=== PATIENT | female | born 2000 | race Caucasian/White ===

== ENCOUNTER → 2019-11-15 | Outpatient (CLI) | payer OTHER, SELFPAY | END | disposition home or self-care (01) | PROVIDERS: Referring Provider Family Medicine; Visit Provider Family Medicine | DX: Z03.818 Encounter for observation for suspected exposure to other biological agents ruled out (principal) | CPT/HCPCS: 87635; U0003 ==

== ENCOUNTER → 2019-11-28 | Outpatient (CLI) | payer OTHER, SELFPAY | END | disposition home or self-care (01) | LOC: LABSPEC 12:56 | PROVIDERS: Referring Provider Family Medicine; Visit Provider Family Medicine | DX: Z11.59 Encounter for screening for other viral diseases (principal) | CPT/HCPCS: 87635; U0003 ==

== ENCOUNTER → 2019-12-12 | Outpatient (CLI) | payer OTHER, SELFPAY | END | disposition home or self-care (01) | LOC: LABSPEC 12:48 | PROVIDERS: Referring Provider Family Medicine; Visit Provider Family Medicine | DX: Z03.818 Encounter for observation for suspected exposure to other biological agents ruled out (principal) | CPT/HCPCS: 87635; U0003 ==

== ENCOUNTER → 2020-07-07 14:35 | Outpatient (CLI) | payer OTHER, SELFPAY ==
[2020-07-07 18:11] LABS: Basophil# 0.05 X10^3/uL; Basophil% 0.8 % (0-1); Eosinophils% 1.6 % (0-5); Hematocrit 33.8 % (37-47); Hemoglobin 10.4 g/dL (12.0-15.0); Lymphocyte % 41.9 % (19-41); Mean Corp Hgb Conc 30.8 g/dL (32-36); Mean Corpuscular Hgb 24.3 pg (27.0-32.0); Mean Platelet Vol. 9.5 fl (6.2-12.0); Monocyte# 0.59 X10^3/uL; Monocyte% 9.2 % (0-10); NRBC Flagged by Analyzer 0 % (0-5); Neutrophil # 2.98 X10^3/uL (2.7-7.7); Neutrophil % 46.2 % (47-70); Platelet Count 367 K/mm3 (150-450); RBC Distribution Width CV 13.2 % (11.6-14.6); RBC Distribution Width SD 37.7 fl (35.1-43.9); Red Blood Count 4.28 M/mm3 (4.2-5.4); White Blood Count 6.4 K/mm3 (4.4-11.0)
[2020-07-07 18:38] LABS: ALB/GLOB Ratio 1.1 RATIO (0.9-2.4); AST(SGOT) 12 U/L (15-37); Alanine Aminotransfer ALT/SGPT 20 U/L (13-56); Albumin, Serum 3.7 g/dL (3.2-5.0); Alkaline Phosphatase 50 U/L (45-117); Anion Gap 8 (5-15); BUN 13 mg/dL (7-18); BUN/Creat Ratio 17.8 RATIO (10-20); Calcium,Total 8.7 mg/dL (8.5-10.1); Chloride 104 mmol/L (98-107); Creatinine, Serum 0.73 mg/dL (0.55-1.02); EST Glomerular Filtration Rate 107 mL/min (>60); Est Glom Filt Rate - Afr Amer 130 mL/min (>60); Globulin 3.5 g/dL (2.2-4.2); Glucose 85 mg/dL (74-106); Potassium 3.5 mmol/L (3.5-5.1); Protein, Total 7.2 g/dL (6.4-8.2); Sodium Level 138 mmol/L (136-145); T4 Free Direct 0.93 ng/dL (0.76-1.46); Thyroid Stim Hormone (TSH) 1.28 uIU/mL (0.358-3.74)
[2020-07-09 17:23] LABS: Ferritin 4 ng/mL (8-252); Iron 24 ug/dL (50-170); Iron Binding Capacity,Total 431 ug/dL (250-450); PERCENT IRON SATURATION 5.6 % (15.0-55.0)
[2020-07-09 22:09] LABS: Endomysial Antibody IgA Negative (Negative)
[2020-07-10 12:49] LABS: Immunoglobulin A 160 mg/dL (87-352); t-Transglutaminase IgA <2 U/mL (0-3)
== END ==
PROVIDERS: PCP Family Medicine; Referring Provider Family Medicine; Visit Provider Family Medicine
DX: L65.9 Nonscarring hair loss, unspecified (principal)
CPT/HCPCS: 36415; 80053; 82728; 82784; 83516; 83540; 83550; 84439; 84443; 85025; 86255

== ENCOUNTER → 2020-07-10 08:58 | Outpatient (CLI) | payer OTHER, SELFPAY | PROVIDERS: PCP Family Medicine; Referring Provider Family Medicine; Visit Provider Family Medicine | DX: D64.9 Anemia, unspecified (principal) | CPT/HCPCS: 36415; 82746 ==

== ENCOUNTER → 2020-07-28 13:36 | Outpatient (CLI) | payer OTHER, SELFPAY ==
[2020-07-28 15:20] LABS: Absolute Neutrophil Count 3.2 X10^3/uL (2.0-7.7); Basophil# 0.03 X10^3/uL; Basophil% 0.5 % (0-1); Eosinophil# 0.08 X10^3/uL; Eosinophils% 1.4 % (0-5); Hematocrit 34.6 % (37-47); Hemoglobin 10.4 g/dL (12.0-15.0); Lymphocyte % 37.2 % (19-41); Mean Corp Hgb Conc 30.1 g/dL (32-36); Mean Corpuscular Hgb 23.7 pg (27.0-32.0); Mean Corpuscular Volume 78.8 fL (81-99); Mean Platelet Vol. 9.7 fl (6.2-12.0); Monocyte# 0.38 X10^3/uL; Monocyte% 6.4 % (0-10); NRBC Flagged by Analyzer 0 % (0-5); Neutrophil # 3.21 X10^3/uL (2.7-7.7); Neutrophil % 54.3 % (47-70); Platelet Count 400 K/mm3 (150-450); RBC Distribution Width CV 15.2 % (11.6-14.6); RBC Distribution Width SD 42.5 fl (35.1-43.9); Red Blood Count 4.39 M/mm3 (4.2-5.4); White Blood Count 5.9 K/mm3 (4.4-11.0)
[2020-07-28 15:44] LABS: Ferritin 19 ng/mL (8-252); Iron 370 ug/dL (50-170); Iron Binding Capacity,Total 415 ug/dL (250-450)
== END ==
PROVIDERS: PCP Family Medicine; Referring Provider Family Medicine; Visit Provider Family Medicine
DX: D50.9 Iron deficiency anemia, unspecified (principal)
CPT/HCPCS: 36415; 82728; 83540; 83550; 85025

== ENCOUNTER → 2020-09-10 07:24 | Outpatient (CLI) | payer OTHER, SELFPAY ==
[2020-08-20 09:08] VITALS: BMI 23.8
[2020-09-10 08:55] LABS: Hemoglobin 10.8 g/dL (12.0-15.0); Mean Corp Hgb Conc 30.9 g/dL (32-36); Mean Corpuscular Hgb 23.5 pg (27.0-32.0); Mean Corpuscular Volume 76.1 fL (81-99); Mean Platelet Vol. 9.4 fl (6.2-12.0); Platelet Count 367 K/mm3 (150-450); RBC Distribution Width CV 16.4 % (11.6-14.6); RBC Distribution Width SD 44.8 fl (35.1-43.9)
== END ==
PROVIDERS: PCP Family Medicine; Referring Provider Surgery; Visit Provider Surgery
DX: D64.9 Anemia, unspecified (principal)
CPT/HCPCS: 36415; 85027

== ENCOUNTER 2020-10-21 05:26 | Day surgery (SDC) | payer OTHER, SELFPAY ==
[2020-08-20 09:08] VITALS: BMI 23.8
[2020-10-21] VITALS (7 sets, daily range): BP systolic 106–149; BP diastolic 69–83; PULSE 57–82; RESP 16; TEMP 36.1–36.4; O2SAT 99–100; BMI 23.7
--- NOTE | 2020-10-21 05:49 | HP.PCM_ITS ---
History and Physical Date of Admission: 10/21/20 Intake Visit Reasons: Anemia Chief Complaint: anemia/ abd pain/ change in bowel habits Printer Assistant Required: No Is patient in pain?: No Allergies venom-honey bee Allergy (Severe, Verified 08/20/20 09:16) moderate swelling and SOB Medications cholecalciferol (vitamin D3) 50 mcg (2,000 unit) capsule 50 mcg PO DAILY 08/20/20 [History Confirmed 08/20/20] multivitamin 1 tab PO DAILY 08/20/20 [History Confirmed 08/20/20] omega-3 fatty acids 1,000 mg capsule 1,000 mg PO DAILY 08/20/20 [History Confirmed 08/20/20] Is last menstrual period known: No Post menopausal: No Patient : No PFSH Medical History (Updated 08/20/20 @ 09:[address] Dileep Espinosa MD) Anemia Surgical History (Updated 08/20/20 @ 09:07 by Skye Mayen) History of wisdom tooth extraction Family History (Updated 08/20/20 @ 09:08 by Skye Mayen) Father Crohn disease Social History (Updated 08/20/20 @ 09:08 by Skye Mayen) Smoking Status: Never smoker HPI: VILMA THOMAS, is a 19 F who presents to the office today for surgical consultation regarding chronic anemia. The patient is referred by her primary care physician Dr Bryce Agee a written copy of my surgical consult and recommendations will return to him. As of July 28, 2020 her hemoglobin was 10.4 with a hematocrit of 34.6. MCV was low at 78.8 MCH 23.7 and MCHC 30.1. Her iron level was 378 with a TIBC of 415 and an iron saturation of 5.6. Interesting fecal occult blood testing was negative. She does not describe any menstrual irregularities. By report she also has intermittent problems with diarrhea. Her father has Crohn's disease. The patient states that she over her lifetime is donated about 5 units of blood. She states that she donated a unit of blood about a month prior to her appointment with Dr. Rojo. By report that hemoglobin levels approximately 10.1. She was placed on iron therapy. A repeat laboratory level however demonstrated that she was at the same level of 10.1 despite the iron and appropriate correction of her iron therapy. She denies any bright red blood per rectum or melena. As noted above her stool card was negative. Now she does admit that after this most recent blood donation that she did not feel well for 2 days somewhat dizzy and lightheaded. She states that her father developed Crohn's disease approximately when he was 20. ROS General General: No weight change, appetite, fatigue, colon cancer, breast cancer or weakness HEENT HEENT: No difficulty swallowing, eye injury, eye surgery, swollen glands or hoarseness Endo Endocrine: No thyroid disease, diabetes mellitus, thyroid cancer, Hair loss, heat intolerance or cold intolerance Musc Musculoskeletal: No back problems, arthritis, rheumatoid arthritis, gout or joint pain Cardio Cardiovascular: No murmur, pacemaker, heart disease, atrial fibrillation, high blood pressure, heart attack, heart stent, palpitations, shortness of breat with exertion or chest pain Psych Psychiatric: No depression, anxiety or hearing voices Resp Respiratory: No shortness of breath, No sleep apnea, No cough, No COPD, No asthma, No emphysema and No wheezing Gastro Gastrointestinal: Yes abdominal pain, Yes nausea or vomiting, Yes diarrhea, Yes constipation, No blood in stool, No acid reflux, No hemorrhoids, No ulcers, No gallbladder problem and No black,tarry stools [place] Hematologic: No blood thinners, No blood disorders, No bleeding, No anemia and No blood clots Neuro Neurologic: No weakness Exam Const General: cooperative, healthy appearing, comfortable and no acute distress HENMT Other: Recent left scalp bee sting with swelling of the left upper eyelid facial features. Resp Effort & Inspection: normal respiratory effort Auscultation: clear to auscultation bilaterally Cardio Rate: regular rate Rhythm: regular rhythm GI Palpation: soft and no hepatosplenomegaly Auscultation: normal bowel sounds Extrem General: no calf tenderness bilaterally Psych Affect: normal affect COVID (Procedure Consent) Procedure Criteria Procedure Criteria: Yes Elective The surgeon/proceduralist and patient have discussed in detail the risk of exposure to and/or potential harm posed by the COVID-19 virus with having a surgery/procedure at this time versus the risk of delaying the surgery/procedure. It is not possible to know either the risk of delaying the surgery or procedure or chance of getting an infection with perfect accuracy, but a joint decision was made between the patient and the surgeon/proceduralist to proceed at this time with the scheduled surgery/procedure as indicated on the consent form. Assessment and Plan (1) Constipation: Status: Acute Comment: I have offered the patient consideration for combined esophagogastroduodenoscopy with biopsy and colonoscopy with biopsy or polypectomy to help evaluate because of her anemia and intermittent nonspecific abdominal symptoms. There is some interest in whether her current anemia was simply secondary to her blood donation without time for reaccumulation. After discussion with her it was elected to wait into early August and recheck her levels. The patient was on iron replacement for approximately 2 weeks but since her levels of iron have recovered that medication has been ceased. She obviously is aware that she is not to donate further blood at this time. As noted per Dr Bryce Agee she does not appear to have a menstrual history that would correlate with excessive loss. At the conclusion of her appointment the plan at this time is to recheck CBC early in August. If she is normalized then holding off on endoscopy would seem reasonable. If she is not normalized and I would anticipate a combined esophagogastroduodenoscopy with biopsy and colonoscopy with biopsy with hopeful inspection of the terminal ileum at that setting as well. This would be done under monitored anesthesia care. She is comfortable with this and we will schedule and proceed as noted. September 10, 2020 hemoglobin levels 10.8 and hematocrit 35. This has not recovered. It is for this reason the patient has elected to schedule proceed with a combined upper and lower endoscopy investigating a potential source for blood loss and diarrhea/constipation. Copy: Dr Bryce Espinosa M.D., F.A.C.S. (2) Diarrhea: Status: Acute (3) Abdominal pain: Status: Acute (4) Anemia: Status: Acute Orders: Orders: CBC-Complete Blood Cnt No Diff 08/31/20 D64.9 The patient's had no clinical changes since her office visit. No bright red blood per rectum or melena. Although she previously had been on iron supplementation and cyst did not appear to provide benefit that has been ceased per Dr. Bryce Agee. The patient may need outpatient hematology consultation. Dileep Espinosa M.D., F.A.C.S.
[2020-10-21 05:52] LABS: Internal QC Validated? YES +Cl - CLEAR BKGD; Pregnancy, Urine Negative Negative
[2020-10-21] MEDS: Lactated Ringers 1,000 ML 100 ML IV (06:01)
--- NOTE | 2020-10-21 06:30 | IMM_PTH ---
PATIENT: VILMA THOMAS LOC: EN U#:[id number] AGE/SX: 19/F ROOM: RE10/21/[address]: Dr. Dileep Espinosa MD : 2000 BED: DIS: 10/21/2020 SPEC #: [id number] RECD: 10/21/20 12:06 STATUS: NELLA REJosh #: [id number] LES: 10/21/20 06:[address]: Dileep Espinosa DEPT: IMMUNOHISTOCHEMISTRY RECD BY: Geno Cannon ENTERED: 10/21/20 12:06 SP TYPE: IMMUNO OTHR DR: Dr. Bryce Agee MD Tissues: B - Stomach, NOS Procedures: H Pylori (initial) PHYSICIAN & INSTITUTION [place] [address] SPECIMEN INFORMATION: Tissue Source: B ? Antrum biopsy Clinical Info: Constipation, diarrhea, abdominal pain, anemia Specimen Number: [id number] CPT code: 88677 METHODOLOGY: Deparaffinized sections of prefer/formalin-fixed tissue or PAP/DQ stained slides are incubated with monoclonal/polyclonal antibodies/oligonucleotide probes. Localization is made via biotin free immunoperoxidase method. Appropriate controls are performed and reacted as expected. Results on target cell population are indicated in the following table: RESULTS: ANTIBODY / CLONE RESULT Block B H Pylori (polyclonal) negative These tests were developed and their performance characteristics determined by [facility]. They may not have been cleared or approved by the U.S. Food and Drug Administration. The FDA has determined that such clearance or approval is not necessary. INTERPRETATION: B. Antrum biopsy: Negative for Helicobacter pylori organisms. SJ:jerman 10/22/2020
--- NOTE | 2020-10-21 06:30 | EGD_PTH ---
PATIENT: VILMA THOMAS LOC: EN U#:[id number] AGE/SX: 19/F ROOM: RE10/21/[address]: Dr. Dileep Espinosa MD : 2000 BED: DIS: 10/21/2020 SPEC #: [id number] RECD: 10/21/20 10:19 STATUS: NELAL MATTHIAS #: [id number] LES: 10/21/20 06:[address]: Dileep Espinosa DEPT: SURGICAL PATHOLOGY RECD BY: Ginny Millan ENTERED: 10/21/20 10:55 SP TYPE: EGD BIOPSY [facility] DR: Dr. Bryce Agee MD Tissues: A - Duodenum, NOS B - Gastric mucous membrane C - Esophagus, NOS D - Esophagus, NOS E - Ileum, NOS Procedures: Surgery Specimen Level IV HEADER OPERATION: Colonoscopy, EGD ([facility] [place]) PRE-OP DIAGNOSIS: Constipation, diarrhea, abdominal pain, anemia TISSUE SUBMITTED: A - Duodenum biopsy, B - Antrum biopsy for H. pylori and path, C - Distal esophagus biopsy, D - Mid esophagus biopsy, E - Terminal ileum biopsy MICROSCOPIC DIAGNOSIS A. Duodenum, biopsy: A fragment of small intestine mucosa, no pathologic diagnosis. B. Antrum, biopsy: Mild gastritis. See microscopic description and comment. C. Distal esophagus, biopsy: A fragment of squamous epithelium, no pathologic diagnosis. D. Mid esophagus, biopsy: A fragment of squamous epithelium, no pathologic diagnosis. E. Terminal ileum, biopsy: Fragments of small intestine mucosa, no pathologic diagnosis. SJ:jerman 10/22/2020 COMMENT B. The results of immunohistochemistry for Helicobacter pylori will be reported separately ([id number]). MICROSCOPIC DESCRIPTION Slides are reviewed. B. The specimen shows fragments of gastric mucosa with chronic inflammatory cell infiltrates in the lamina propria consisting of lymphocytes and plasma cells, consistent with mild chronic gastritis. GROSS DESCRIPTION A - Received in fixative is one container labeled with the patient's name and designated duodenum biopsy. The specimen consists of one irregular fragment of light nam soft tissue that measures 0.3 x 0.3 x 0.1 cm. The specimen is totally submitted in one cassette. B - Received in fixative is one container labeled with the patient's name and designated antrum biopsy. The specimen consists of one irregular fragment of light nam soft tissue that measures 0.3 x 0.3 x 0.1 cm. The specimen is totally submitted in one cassette. C - Received in fixative is one container labeled with the patient's name and designated distal esophagus biopsy. The specimen consists of one irregular fragment of light nam soft tissue that measures 0.4 x 0.3 x 0.1 cm. The specimen is totally submitted in one cassette. D - Received in fixative is one container labeled with the patient's name and designated mid esophagus biopsy. The specimen consists of one irregular fragment of light nam soft tissue that measures 0.3 x 0.2 x 0.1 cm. The specimen is totally submitted in one cassette. E - Received in fixative is one container labeled with the patient's name and designated terminal ileum biopsy. The specimen consists of multiple irregular fragments of light nam soft tissue that in aggregate measure 0.8 x 0.4 x 0.1 cm. The specimen is totally submitted in one cassette. / SJ:rg 10/21/20 TC:3 CPT: 52085 x5
--- NOTE | 2020-10-21 07:07 | OP.EGD_ITS ---
Patient Name: Priscilla Kessler Procedure Date: 10/21/2020 6:10 AM Date of : 2000 Age: 19 Procedure: Upper GI endoscopy Indications: Iron deficiency anemia Providers: Dileep Espinosa MD Referring MD: Dileep Espinosa MD Medicines: See the Anesthesia note for documentation of the administered medications Complications: No immediate complications. Procedure: Pre-Anesthesia Assessment: - Prior to the procedure, a History and Physical was performed, and patient medications and allergies were reviewed. The patient's tolerance of previous anesthesia was also reviewed. The risks and benefits of the procedure and the sedation options and risks were discussed with the patient. All questions were answered, and informed consent was obtained. Prior Anticoagulants: The patient has taken no previous anticoagulant or antiplatelet agents. ASA Grade Assessment: I - A normal, healthy patient. After reviewing the risks and benefits, the patient was deemed in satisfactory condition to undergo the procedure. After obtaining informed consent, the endoscope was passed under direct vision. Throughout the procedure, the patient's blood pressure, pulse, and oxygen saturations were monitored continuously. The gastroscope was introduced through the mouth, and advanced to the second part of duodenum. The upper GI endoscopy was accomplished without difficulty. The patient tolerated the procedure well. Scope In: 6:33:14 AM Scope Out: 6:40:32 AM Total Procedure Duration Time 0 hours 7 minutes 18 seconds Findings: The mid esophagus was normal. Biopsies were taken with a cold forceps for histology. The distal esophagus was normal. Biopsies were taken with a cold forceps for histology. The entire examined stomach was normal. Biopsies were taken with a cold forceps for histology. The examined duodenum was normal. Biopsies were taken with a cold forceps for histology. Impression: - Normal mid esophagus. Biopsied. - Normal distal esophagus. Biopsied. - Normal stomach. Biopsied. - Normal examined duodenum. Biopsied. Recommendation: - Discharge patient to home. - Resume previous diet. - Continue present medications. - Telephone my office for pathology results in 1 week. No source of blood loss. Consider YARD RIGGER etiology. Procedure Code(s): --- Professional --- 21315, Esophagogastroduodenoscopy, flexible, transoral; with biopsy, single or multiple Diagnosis Code(s): --- Professional --- D50.9, Iron deficiency anemia, unspecified CPT copyright 2017 [employer]. All rights reserved. The codes documented in this report are preliminary and upon emergency veterinarian review may be revised to meet current compliance requirements. Dileep Espinosa MD 10/21/2020 7:06:45 AM This report has been signed electronically. Number of Addenda: 0 Note Initiated On: 10/21/2020 6:10 AM
--- NOTE | 2020-10-21 07:08 | OP.CCLET_ITS ---
10/21/2020 Bryce Agee [address] [place] [address] Re : Upper GI endoscopy procedure for Priscilla Kessler Dear Dr. Agee This procedure was performed on Wednesday, October 21, 2020. My impressions and recommendations are as follows: Impressions : - Normal mid esophagus. Biopsied. - Normal distal esophagus. Biopsied. - Normal stomach. Biopsied. - Normal examined duodenum. Biopsied. Recommendations : - Discharge patient to home. - Resume previous diet. - Continue present medications. - Telephone my office for pathology results in 1 week. No source of blood loss. Consider ICE CREAM VAN VENDOR etiology. My findings are described in the full procedure note, which is enclosed. If I can be of further assistance, please feel free to contact me at Doctor phone number(s): Work: . Sincerely, Dileep Espinosa MD 10/21/2020 7:06:45 AM This report has been signed electronically.
--- NOTE | 2020-10-21 07:11 | OP.COLON_ITS ---
Patient Name: Priscilla Kessler Procedure Date: 10/21/2020 6:43 AM Date of : 2000 Age: 19 Procedure: Colonoscopy Indications: Iron deficiency anemia Providers: Dileep Espinosa MD Referring MD: Dileep Espinosa MD Medicines: See the Anesthesia note for documentation of the administered medications Patient Profile: Last Colonoscopy: none. The patient's first colonoscopy is today. Complications: No immediate complications. Procedure: Pre-Anesthesia Assessment: - Prior to the procedure, a History and Physical was performed, and patient medications and allergies were reviewed. The patient's tolerance of previous anesthesia was also reviewed. The risks and benefits of the procedure and the sedation options and risks were discussed with the patient. All questions were answered, and informed consent was obtained. Prior Anticoagulants: The patient has taken no previous anticoagulant or antiplatelet agents. ASA Grade Assessment: I - A normal, healthy patient. After reviewing the risks and benefits, the patient was deemed in satisfactory condition to undergo the procedure. After I obtained informed consent, the scope was passed under direct vision. Throughout the procedure, the patient's blood pressure, pulse, and oxygen saturations were monitored continuously. The Colonoscope was introduced through the anus and advanced to the terminal ileum, with identification of the appendiceal orifice and IC valve. The colonoscopy was performed without difficulty. The patient tolerated the procedure well. The quality of the bowel preparation was good. The terminal ileum, the ileocecal valve and the appendiceal orifice were photographed. Scope In: 6:44:15 AM Scope Withdrawal Time 0 hours 11 minutes 21 seconds Scope Out: 7:01:14 AM Total Procedure Duration Time 0 hours 16 minutes 59 seconds Findings: Lax anal tone The colon (entire examined portion) appeared normal. The terminal ileum appeared normal. Biopsies were taken with a cold forceps for histology. Impression: - The entire examined colon is normal. - The examined portion of the ileum was normal. Biopsied. Recommendation: - Discharge patient to home. - Resume previous diet. - Continue present medications. - Repeat colonoscopy at age 44. - Telephone my office for pathology results in 1 week. No colonic source of obvious gastrointestinal blood loss. Consider possible NIGHT ASSISTANT etiology. Procedure Code(s): --- Professional --- 73161, Colonoscopy, flexible; with biopsy, single or multiple Diagnosis Code(s): --- Professional --- D50.9, Iron deficiency anemia, unspecified CPT copyright 2017 [employer] [place] [employer]. All rights reserved. The codes documented in this report are preliminary and upon toolsmith review may be revised to meet current compliance requirements. Dileep Espinosa MD 10/21/2020 7:11:18 AM This report has been signed electronically. Number of Addenda: 0 Note Initiated On: 10/21/2020 6:43 AM
--- NOTE | 2020-10-21 07:12 | OP.CCLET_ITS ---
10/21/2020 Bryce Agee [address] [place] [address] Re : Colonoscopy procedure for Priscilla Kessler Dear Dr. Agee This procedure was performed on Wednesday, October 21, 2020. My impressions and recommendations are as follows: Impressions : - The entire examined colon is normal. - The examined portion of the ileum was normal. Biopsied. Recommendations : - Discharge patient to home. - Resume previous diet. - Continue present medications. - Repeat colonoscopy at age 44. - Telephone my office for pathology results in 1 week. No colonic source of obvious gastrointestinal blood loss. Consider possible SHOEMAKER APPRENTICE etiology. My findings are described in the full procedure note, which is enclosed. If I can be of further assistance, please feel free to contact me at Doctor phone number(s): Work: . Sincerely, Dileep Espinosa MD 10/21/2020 7:11:18 AM This report has been signed electronically.
== END 2020-10-21 08:01 | disposition home or self-care (01) ==
LOC: EN 05:27 → AC 05:27
PROVIDERS: Anesthesiology; PCP Family Medicine; Referring Provider Surgery; Visit Provider Surgery
PROC: 0DJD8ZZ Inspection of Lower Intestinal Tract, Via Natural or Artificial Opening Endoscopic (ICD-10-PCS; CPT 45378; principal; 2020-10-21 06:25)
DX: K29.70 Gastritis, unspecified, without bleeding (principal); D50.9 Iron deficiency anemia, unspecified; K59.00 Constipation, unspecified; R19.7 Diarrhea, unspecified; R10.9 Unspecified abdominal pain; Z20.822 Contact with and (suspected) exposure to COVID-19; Z83.79 Family history of other diseases of the digestive system
CPT/HCPCS: 43239; 45380; 81025; 87426; 88305; 88342; C9803; J7120; J2405

== ENCOUNTER → 2020-12-17 16:56 | Outpatient (CLI) | payer OTHER, SELFPAY ==
[2020-12-17 17:42] LABS: Absolute Lymphocyte Count 2.72 X10^3/uL (0.83-4.51); Absolute Neutrophil Count 3.2 X10^3/uL (2.0-7.7); Basophil# 0.06 X10^3/uL; Basophil% 0.9 % (0-1); Eosinophils% 1.5 % (0-5); Hematocrit 37.6 % (37-47); Hemoglobin 12.2 g/dL (12.0-15.0); Lymphocyte # 2.72 X10^3/ul (0.83-4.51); Lymphocyte % 40.7 % (19-41); Mean Corp Hgb Conc 32.4 g/dL (32-36); Mean Corpuscular Volume 80.2 fL (81-99); Monocyte# 0.62 X10^3/uL; Monocyte% 9.3 % (0-10); NRBC Flagged by Analyzer 0 % (0-5); Neutrophil # 3.17 X10^3/uL (2.7-7.7); Neutrophil % 47.3 % (47-70); Platelet Count 335 K/mm3 (150-450); RBC Distribution Width SD 43.8 fl (35.1-43.9); Red Blood Count 4.69 M/mm3 (4.2-5.4); White Blood Count 6.7 K/mm3 (4.4-11.0)
[2020-12-17 18:49] LABS: Ferritin 7 ng/mL (8-252); Iron 127 ug/dL (50-170); Iron Binding Capacity,Total 448 ug/dL (250-450)
== END ==
PROVIDERS: PCP Family Medicine; Referring Provider Family Medicine; Visit Provider Family Medicine
DX: D50.9 Iron deficiency anemia, unspecified (principal)
CPT/HCPCS: 36415; 82728; 83540; 83550; 85025